=== PATIENT | male | born 1990 | race Caucasian/White ===

== ENCOUNTER 2017-10-17 12:19 | Emergency (ER) | payer SELFPAY ==
--- NOTE | 2017-10-17 13:12 | ER Document Report ---
HPI - HPI Patient complains to provider of: abscess roof of mouth Onset: Other - 3 days Quality of pain: Achy, Pressure Pain Level: 4 Context: 27 yo male with hard palate abscess for 3 days, not draining. No fever. Hx of extensive decay and gingivitis. Associated Symptoms: None Exacerbated by: Denies Relieved by: Denies Similar symptoms previously: Yes Recently seen / treated by doctor: No - ROS ROS below otherwise negative: Yes Systems Reviewed and Negative: Yes All other systems reviewed and negative Past Medical History - General Information source: Patient - Social History Smoking Status: Current Every Day Smoker Frequency of alcohol use: None Drug Abuse: None Lives with: Family Family History: Reviewed & Not Pertinent - Medical History Medical History: Negative Surgical Hx: Negative - Immunizations Hx Diphtheria, Pertussis, Tetanus Vaccination: Yes Vertical Provider Document - CONSTITUTIONAL Agree With Documented VS: Yes Exam Limitations: No Limitations - INFECTION CONTROL TRAVEL OUTSIDE OF THE [place] IN LAST 30 DAYS: No - HEENT HEENT: Normocephalic Notes: fluctuant right side anterior hard palate abscess, consult dr lynne who looked at it and it is OK to incise to drain the abscess - NECK Neck: Supple. negative: Lymphadenopathy-Left, Lymphadenopathy-Right - RESPIRATORY Respiratory: Breath Sounds Normal, No Respiratory Distress O2 Sat by Pulse Oximetry: 98 - CARDIOVASCULAR Cardiovascular: Regular Rate, Regular Rhythm - NEURO Level of Consciousness: Awake, Alert, Appropriate - DERM Integumentary: Warm, Dry, Abscess - see above Course - Vital Signs Vital signs: Temp Pulse Resp BP Pulse Ox 99.1 F 101 H 20 151/87 H 98 10/17/17 12:24 10/17/17 12:24 10/17/17 12:24 10/17/17 12:24 10/17/17 12:24 Procedures - Incision and Drainage Right Time completed: 14:45 Type: Complex Blade size: 11 Incision Method: Incision made by scalpel - 2mm incision, copius pus and blood drained. rinsed with saline, then applied pressure, bleeding ceased Amount/type of drainage: large pus and blood Discharge - Discharge Clinical Impression: I and D of dental abscess hard palate Condition: Good Disposition: HOME, SELF-CARE Instructions: Acetaminophen, Dentist, Penicillin V K ([facility]), Toothache ([facility]) Additional Instructions: Saline rinses Topical lidocaine to numb the area Return to the emergency room if you have recurrent abscess swelling or bleeding See the dentist Prescriptions: Ibuprofen [Motrin 800 mg Tablet] 800 mg PO Q8HP PRN #30 tablet PRN Reason: Penicillin V Potassium [Penicillin Vk 500 mg Tablet] 500 mg PO QID #40 tablet Forms: Return to Work
[2017-10-17] MEDS ORDERED: PENICILLIN V POTASSIUM 500 MG TABLET PO ONE (13:23)
[2017-10-17] MEDS ORDERED: ONDANSETRON 4 MG TAB.RAPDIS PO ONE (13:23)
[2017-10-17] MEDS ORDERED: LIDOCAINE 2% VISCOUS SOLN 20 ML UDCUP PO ONE (14:39)
[2017-10-17 15:01] VITALS: BP 114/96
== END 2017-10-17 15:12 | disposition home or self-care (01) ==
LOC: ER 12:19
PROC: 0W930ZZ Drainage of Oral Cavity and Throat, Open Approach (ICD-10-PCS; principal; 2017-10-17)
DX: K12.2 Cellulitis and abscess of mouth (principal)
CPT/HCPCS: 99282; 40800; S0119; J3490